=== PATIENT | female | born 1990 | race Caucasian/White ===

== ENCOUNTER 2024-03-29 21:43 | Emergency (ER) | payer SELFPAY ==
[~2024-03-29] VITALS: Ht 167.6 cm; Wt 60.0 kg
[2024-03-29 21:49] VITALS: TEMP 97.9; O2SAT 99
[2024-03-29 23:04] VITALS: BP 133/96; PULSE 88; RESP 18
[2024-03-29] MEDS: IBUPROFEN 400MG TABLET PO ONE (23:04)
[2024-03-29] MEDS: ACETAMINOPHEN 325MG TABLET PO ONE (23:05)
[2024-03-29] MEDS ORDERED: NAPR-1176 MT (23:47)
[2024-03-29] MEDS ORDERED: LIDO700A15 TP (23:47)
== END 2024-03-30 01:32 | disposition home or self-care (01) ==
LOC: ER 21:43
DX: R07.89 Other chest pain (principal); J45.909 Unspecified asthma, uncomplicated; Z88.8 Allergy status to other drugs, medicaments and biological substances
CPT/HCPCS: 71045; 99283